=== PATIENT | female | born 1980 | race Caucasian/White ===

== ENCOUNTER 2019-03-24 13:47 | Emergency (ER) | payer SELFPAY ==
[2019-03-24 14:27] LABS: Bilirubin Small (Negative); Blood, Urine Negative (Negative); Glucose, Urine (Dipstick) Negative (Negative); Leukocyte Trace (Negative); Nitrite Negative (Negative); Protein, Urine (Dipstick) 30 mg/dL (Neg-Trace); Specific Gravity, Urine 1.025 (1.005-1.030); Urobilinogen 0.2 mg/dL (0.2-1.0)
[2019-03-24 14:28] LABS: Clarity Hazy (Clear)
[2019-03-24 14:34] LABS: Bacteria/HPF 4+ HPF (None Seen); RBC/HPF None Seen HPF (0-3)
== END 2019-03-24 14:56 | disposition home or self-care (01) ==
LOC: SCSER 13:47
DX: N30.00 Acute cystitis without hematuria (principal); E03.9 Hypothyroidism, unspecified; Z79.899 Other long term (current) drug therapy
CPT/HCPCS: 81003; 81015; 99284

== ENCOUNTER 2024-10-28 14:05 | Outpatient (CLI) | payer BC | END 2024-10-28 14:06 | disposition home or self-care (01) | LOC: SCSRAD 14:05 | PROVIDERS: ATTEND Family Medicine | DX: M79.672 Pain in left foot (principal) ==